=== PATIENT | female | born 1980 | race Caucasian/White ===

== ENCOUNTER 2016-09-20 00:07 | Emergency (ER) | payer OTHER ==
--- NOTE | 2016-09-20 01:43 | ED CLINICAL REPORT ---
Clinical Report - Physicians/Mid Levels Located Within [facility] [address] [place] [address] 09/20/2016 0:09 Patient: SARY ARANA Time Seen: 0015. Arrived- By private vehicle. Historian- patient. HISTORY OF PRESENT ILLNESS Chief Complaint: DENTAL PAIN. This started past several days and is still present. It was abrupt in onset and has been constant but is not gone now. Pain described as moderate. The patient has had moderate toothache involving multiple teeth (left lower molar). Similar symptoms previously: Many times. Recent medical care: The patient was seen recently in a clinic. ( on amox. states the pain has not improved). REVIEW OF SYSTEMS No fever, nausea, skin rash or vomiting. All systems otherwise negative, except as recorded above. PAST HISTORY See nurses notes. SOCIAL HISTORY Never smoker. No alcohol use or drug use. No recent travel. Is a local resident. ADDITIONAL NOTES The nursing notes have been reviewed. PHYSICAL EXAM Vital Signs: 09/20/2016 00:15 BP: 127/72. HR: 80. RR: 20. O2 saturation: 97%. Temp: 98.2 F. Pain level now: 10/10. Blood pressure normal. Oxygen saturation normal. Appearance: Alert. No acute distress. Head: Normal external inspection. Eyes: Pupils equal, round and reactive to light. Conjunctivae and eyelids normal. ENT: Moderate, extensive dental decay (lower left first premolar and second premolar, lower left first molar). Ears normal. Nose normal. Pharynx normal. Lips normal. Gums normal. No trismus present. Uvula midline. Neck: Trachea midline. No adenopathy. Thyroid normal. Neck supple. CVS: Normal heart rate and rhythm. Heart sounds normal. Pulses normal. Respiratory: No respiratory distress. Breath sounds normal. Chest nontender. Abdomen: Soft and nontender. No organomegaly. Skin: Normal skin color. No rash. Normal skin turgor. PROGRESS AND PROCEDURES Dental Nerve Block: Inferior Alveolar Block. Procedure performed on the left side. Landmarks were identified. Topical anesthetic applied. Total volume of 4 mL 1% Lidocaine and 0.25% Marcaine infiltrated using a 27-gauge needle. Patient cooperative during procedure. No complications encountered. Excellent anesthesia achieved. ( 1:1 mixture. informed verbal consent obtained.). Course of Care: The patient is a pleasant 35 yo F presenting for evaluation of dental pain. Patient has been evaluated for retropharyngeal abscess, Ludwigs angina, acute necrotizing ulcerative gingivitis, and peritonsillar abscess. The exam findings are not consistent with any of these etiologies. Evidence for dental pain noted on examination. No concern for airway compromise at this time. Patient appears nontoxic. Vital signs are otherwise unremarkable. Do not feel patient is septic at this time. Patient be managed conservatively at this time with antibiotics and nonsteroidal anti-inflammatory medications as tolerated. Patient be instructed to avoid nonsteroidal anti-inflammatory medications if theyre allergic or have intolerances. Did not feel patient needs to be admitted to the hospital or require further emergency department workup/evaluation. Encouraged patient to follow up with the dentist as soon as possible ideally within the next 2 or 3 days. Reviewed risks and benefits of dental block. Patient agreeable. Patient has been reevaluated. No evidence of airway compromise. Patient continues to be nontoxic and in no acute distress. Pain significantly improved. I discussed the patient workup, diagnosis, home care, follow-up, and return precautions. All questions answered. The patient expressed understanding of these instructions and was agreeable to them. Disposition: Discharged. Condition: good. CLINICAL IMPRESSION 09/20/2016 00:15 BP: 127/72. HR: 80. RR: 20. O2 saturation: 97%. Temp: 98.2 F. Pain level now: 10/10. Blood pressure normal. Oxygen saturation normal. Dental caries (extensive decay) (acute left mandibular molars). left sided facial pain. INSTRUCTIONS (check with your local pharmacist for oral lidocaine type of solution. Follow pharmacy's and the package directions.). Warnings: GENERAL WARNINGS: Return or contact your physician immediately if your condition worsens or changes unexpectedly, if not improving as expected, or if other problems arise. Specifically return if pain, vomiting, bleeding, breathing difficulty or fever. Prescription Medications: Clindamycin 150 mg: take 3 capsules orally every 8 hours for 7 days. No refill. (disp suff quant) Follow-up: Return to the emergency department as needed. Follow up with a specialist your dentist as scheduled. Reason for referral: recheck today's concerns. Summary of care provided to patient via paper. Follow up with your doctor in three days. Reason for referral: recheck today's concerns. Summary of care provided to patient via paper. Screening today revealed the patient's blood pressure to be in the normal range. The patient should follow up with a primary care provider for blood pressure management. Understanding of the discharge instructions verbalized by patient. (Electronically signed by Alex Ramirez Dr. 09/22/2016 4:50)
--- NOTE | 2016-09-20 01:43 | ED ORDER SUMMARY ---
..... Patient: SARY ARANA OrderSheet [facility] VisitID: [id number] [address] [place] [address] 35y, F Registration Date/Time: 09/20/2016 ORDER SHEET Weight: 68.0 kg (stated) Allergies: Sulfa Antibiotics GENERAL ORDERS: MEDICATION ORDERS: Clindamycin PO 450 mg (NOW) (00:28 09/20/2016 Marcia Lomax) (0:54 DDavis R.N.) Lidocaine-Epinephrine Injection 1% (place at bedside) (00:09/20/2016 Marcia Lomax) (0:55 DDavis R.N.) Bupivacaine-Epinephrine Injection 0.25% (placed at bedside) (00:09/20/2016 Marcia Lomax) (0:55 DDavis R.N.) IV FLUIDS: ORDER SHEET NOTES: [Electronically signed by Walt Butterfield R.N. (01:49 09/20/2016)] [Electronically signed by Alex Ramirez Dr. (04:50 09/22/2016)] [Electronically locked/signed by Walt Butterfield R.N. (01:49 09/20/2016)]
--- NOTE | 2016-09-20 01:43 | ED NURSING NOTES ---
Clinical Report - Nurses [facility] [address] [place] [address] 09/20/2016 0:09 Patient: SARY ARANA TRIAGE Triage time 00:15. Acuity: LEVEL 4. Chief Complaint: LEFT UPPER and LOWER TOOTHACHE. Alert. JOSE ALFREDO COMA SCORE: [place] Coma Scale: 15- eyes open spontaneously (4); best verbal response- oriented x 4 (5); best motor response- obeys commands (6). --00:19 Walt Butterfield R.N. 00:15 09/20/16. BP: 127/72. HR: 80. RR: 20. O2 saturation: 97% on room air. Temp: 98.2 F (oral). Pain level now: 02/17. --00:19 Walt Butterfield R.N. Weight: 68 kg stated. Height/Length: 68 inches Per Patient. BMI: 22.8. --00:15 Walt Butterfield R.N. Medications Amoxicillin Oral. --00:49 Walt Butterfield R.N. Allergies Sulfa Antibiotics. --00:49 Walt Butterfield R.N. History Arrived by private vehicle, and accompanied by friend. Onset. (August 08). ( increasing since then. dental appointment scheduled for 09/24/16.). SOCIAL HX: Heavy tobacco smoker (cigarette)- less than 1 pack per day. Occasional alcohol use. History of occasional drug use: marijuana. ( Denies HI/SI, she states "I feel safe at home."). ABUSE ASSESSMENT: No report of abuse. SELF HARM ASSESSMENT: A self harm assessment was performed. The patient answered "no" to the question "Do you have thoughts of harming or killing yourself?" and "Are you here because you tried to hurt yourself?". FALL RISK ASSESSMENT: Fall risk assessment completed. No fall risk identified. NUTRITIONAL RISK ASSESSMENT: The nutritional risk assessment revealed no deficiencies. FUNCTIONAL ASSESSMENT: Functional assessment: no impairments noted. LEARNING NEEDS ASSESSMENT: The learning needs assessment revealed no barriers. SKIN INTEGRITY ASSESSMENT: Skin integrity risk assessment completed. No skin integrity risk identified. --00:19 Walt Butterfield R.N. PROBLEMS: no known problems. ADDITIONAL SURGERIES: no known surgeries. Interventions ID band on patient. To room. --00:19 Walt Butterfield R.N. PHYSICAL ASSESSMENT GENERAL / NEURO / PSYCH: Alert. Oriented X 4. HEENT: Voice within normal limits. Dental tenderness (right lower, left lower). Dental decay. Mucous membranes are pink. RESPIRATORY: Respirations not labored. CVS: Capillary refill less than 2 seconds. SKIN: Skin is warm and dry. --00:20 Walt Butterfield R.N. Ambulatory to room. --00:20 Walt Butterfield R.N. NURSING PROGRESS NOTES Two patient identifiers checked. Call light placed in reach. Side rails up x 1. Bed placed in lowest position. Brakes of bed on. Patient ready for evaluation- chart flagged. Care transferred and report given. Patient waiting for evaluation. --00:20 Walt Butterfield R.N. 00:54 09/20/2016 Clindamycin PO Capsules 450 mg given. Allergies verified and confirmed 5 rights. --00:54 Walt Butterfield R.N. 00:55 09/20/2016 Lidocaine-Epinephrine (Lidocaine-Epinephrine) Injection Injectable. (at bedside for physician). --00:55 Walt Butterfield R.N. 00:55 09/20/2016 Bupivacaine-Epinephrine (Bupivacaine-Epinephrine) Injection Injectable. (at bedside for physician). --00:55 Walt Butterfield R.N. ( Patient requesting pain medication, dr. Johnson notified). --01:27 Walt Butterfield R.N. DISPOSITION / DISCHARGE Departure time: 01:47. Condition at departure: stable. No learning barriers present. Discharge instructions provided and reviewed with the patient. Reviewed medication(s) side effects, precautions, dosing and course information. Prescription(s) given to the patient. Treatments reviewed. Reviewed referrals for followup. Patient verbalized understanding. Written instructions provided in [place]. The patient was discharged home and accompanied by firer electric locomotive. She left the Emergency Department ambulatory and via private vehicle. Assembly Manager driving. --01:48 Walt Butterfield R.N. 01:47 09/20/16. BP: 118/72. HR: 89. RR: 24. O2 saturation: 98% on room air. Pain level now: 02/17. --01:48 Walt Butterfield R.N. Locked/Released at 09/20/2016 1:49 by Walt Butterfield R.N.
--- NOTE | 2016-09-20 01:43 | ED ORDER SUMMARY ---
..... Patient: SARY ARANA OrderSheet [facility] VisitID: [id number] [address] [place] [address] 35y, F Registration Date/Time: 09/20/2016 ORDER SHEET Weight: 68.0 kg (stated) Allergies: Sulfa Antibiotics GENERAL ORDERS: MEDICATION ORDERS: Clindamycin PO 450 mg (NOW) (00:28 09/20/2016 Marcia Lomax) (0:54 DDavis R.N.) Lidocaine-Epinephrine Injection 1% (place at bedside) (00:09/20/2016 Marcia Lomax) (0:55 DDavis R.N.) Bupivacaine-Epinephrine Injection 0.25% (placed at bedside) (00:09/20/2016 Marcia Lomax) (0:55 DDavis R.N.) IV FLUIDS: ORDER SHEET NOTES: [Electronically signed by Walt Butterfield R.N. (01:49 09/20/2016)] [Electronically signed by Alex Ramirez Dr. (04:50 09/22/2016)] [Electronically locked/signed by Walt Butterfield R.N. (01:49 09/20/2016)]
--- NOTE | 2016-09-20 01:43 | ED NURSING NOTES ---
Clinical Report - Nurses [facility] [address] [place] [address] 09/20/2016 0:09 Patient: SARY ARANA TRIAGE Triage time 00:15. Acuity: LEVEL 4. Chief Complaint: LEFT UPPER and LOWER TOOTHACHE. Alert. JOSE ALFREDO COMA SCORE: [place] Coma Scale: 15- eyes open spontaneously (4); best verbal response- oriented x 4 (5); best motor response- obeys commands (6). --00:19 Walt Butterfield R.N. 00:15 09/20/16. BP: 127/72. HR: 80. RR: 20. O2 saturation: 97% on room air. Temp: 98.2 F (oral). Pain level now: 02/17. --00:19 Walt Butterfield R.N. Weight: 68 kg stated. Height/Length: 68 inches Per Patient. BMI: 22.8. --00:15 Walt Butterfield R.N. Medications Amoxicillin Oral. --00:49 Walt Butterfield R.N. Allergies Sulfa Antibiotics. --00:49 Walt Butterfield R.N. History Arrived by private vehicle, and accompanied by friend. Onset. (August 08). ( increasing since then. dental appointment scheduled for 09/24/16.). SOCIAL HX: Heavy tobacco smoker (cigarette)- less than 1 pack per day. Occasional alcohol use. History of occasional drug use: marijuana. ( Denies HI/SI, she states "I feel safe at home."). ABUSE ASSESSMENT: No report of abuse. SELF HARM ASSESSMENT: A self harm assessment was performed. The patient answered "no" to the question "Do you have thoughts of harming or killing yourself?" and "Are you here because you tried to hurt yourself?". FALL RISK ASSESSMENT: Fall risk assessment completed. No fall risk identified. NUTRITIONAL RISK ASSESSMENT: The nutritional risk assessment revealed no deficiencies. FUNCTIONAL ASSESSMENT: Functional assessment: no impairments noted. LEARNING NEEDS ASSESSMENT: The learning needs assessment revealed no barriers. SKIN INTEGRITY ASSESSMENT: Skin integrity risk assessment completed. No skin integrity risk identified. --00:19 Walt Butterfield R.N. PROBLEMS: no known problems. ADDITIONAL SURGERIES: no known surgeries. Interventions ID band on patient. To room. --00:19 Walt Butterfield R.N. PHYSICAL ASSESSMENT GENERAL / NEURO / PSYCH: Alert. Oriented X 4. HEENT: Voice within normal limits. Dental tenderness (right lower, left lower). Dental decay. Mucous membranes are pink. RESPIRATORY: Respirations not labored. CVS: Capillary refill less than 2 seconds. SKIN: Skin is warm and dry. --00:20 Walt Butterfield R.N. Ambulatory to room. --00:20 Walt Butterfield R.N. NURSING PROGRESS NOTES Two patient identifiers checked. Call light placed in reach. Side rails up x 1. Bed placed in lowest position. Brakes of bed on. Patient ready for evaluation- chart flagged. Care transferred and report given. Patient waiting for evaluation. --00:20 Walt Butterfield R.N. 00:54 09/20/2016 Clindamycin PO Capsules 450 mg given. Allergies verified and confirmed 5 rights. --00:54 Walt Butterfield R.N. 00:55 09/20/2016 Lidocaine-Epinephrine (Lidocaine-Epinephrine) Injection Injectable. (at bedside for physician). --00:55 Walt Butterfield R.N. 00:55 09/20/2016 Bupivacaine-Epinephrine (Bupivacaine-Epinephrine) Injection Injectable. (at bedside for physician). --00:55 Walt Butterfield R.N. ( Patient requesting pain medication, dr. Johnson notified). --01:27 Walt Butterfield R.N. DISPOSITION / DISCHARGE Departure time: 01:47. Condition at departure: stable. No learning barriers present. Discharge instructions provided and reviewed with the patient. Reviewed medication(s) side effects, precautions, dosing and course information. Prescription(s) given to the patient. Treatments reviewed. Reviewed referrals for followup. Patient verbalized understanding. Written instructions provided in [place]. The patient was discharged home and accompanied by medical lead. She left the Emergency Department ambulatory and via private vehicle. Digitizer Operator driving. --01:48 Walt Butterfield R.N. 01:47 09/20/16. BP: 118/72. HR: 89. RR: 24. O2 saturation: 98% on room air. Pain level now: 02/17. --01:48 Walt Butterfield R.N. Locked/Released at 09/20/2016 1:49 by Walt Butterfield R.N.
--- NOTE | 2016-09-22 04:50 | ED DISCHARGE INSTRUCTIONS ---
Patient: SARY ARANA General Instructions [facility] VisitID: [id number] [address] [place] [address] 35y, F Registration Date/Time: 09/20/2016 09/20/2016 00:15 BP: 127/72. HR: 80. RR: 20. O2 saturation: 97%. Temp: 98.2 F. Pain level now: 10/10. Blood pressure normal. Oxygen saturation normal. Dental caries (extensive decay) (acute left mandibular molars). left sided facial pain. INSTRUCTIONS (check with your local pharmacist for oral lidocaine type of solution. Follow pharmacy's and the package directions.). Warnings: GENERAL WARNINGS: Return or contact your physician immediately if your condition worsens or changes unexpectedly, if not improving as expected, or if other problems arise. Specifically return if pain, vomiting, bleeding, breathing difficulty or fever. Prescription Medications: Clindamycin 150 mg: take 3 capsules orally every 8 hours for 7 days. No refill. (disp suff quant) Follow-up: Return to the emergency department as needed. Follow up with a specialist your dentist as scheduled. Reason for referral: recheck today's concerns. Summary of care provided to patient via paper. Follow up with your doctor in three days. Reason for referral: recheck today's concerns. Summary of care provided to patient via paper. Screening today revealed the patient's blood pressure to be in the normal range. The patient should follow up with a primary care provider for blood pressure management. Understanding of the discharge instructions verbalized by patient. ADDITIONAL INFORMATION Dental Cavity A dental cavity is a pit or crater in the enamel surface of the tooth. This exposes the sensitive inner layer of the tooth and causes pain. If untreated, the cavity will get bigger and may cause an infection or abscess in the root of the tooth. An infection in the tooth is a much more serious problem and may require a root canal or removal of the entire tooth. The tooth pain may be made worse by drinking hot or cold fluids. It may spread from the tooth to the ear or jaw on the same side. Home Care: Avoid hot and cold foods, and liquids since your tooth may be sensitive to temperature changes. If your tooth is chipped or cracked, or if there is a large open cavity, apply OIL OF CLOVES (available hyle-obp-avfzznm in drug stores) directly to the tooth to reduce pain. Some pharmacies carry an efji-dms-vsravpx "toothache kit." This contains oil of cloves and a paste, which can be applied over the exposed tooth to decrease sensitivity. An ice pack on your jaw over the sore area may help to reduce pain. You may use acetaminophen (Tylenol) or ibuprofen (Motrin, Advil) to control pain, unless another pain medicine was prescribed. [ NOTE: If you have liver disease or ever had a stomach ulcer, talk with your doctor before using these medicines.] If you have signs of an infection, an antibiotic will be given. Take it as directed. Follow-Up with your dentist as directed. Although your pain may go away with the treatment given, only a dentist can fully evaluate and treat this problem to prevent further tooth damage. Get Prompt Medical Attention if any of the following occur: Redness or swelling of the face Pain worsens or spreads to the neck Fever over 100.5 F (38C) Unusual drowsiness; headache or stiff neck; weakness or fainting Pus drains from the tooth or gum Difficulty swallowing or breathing Dental Pain A crack or cavity in the tooth, which exposes the sensitive inner area of the tooth can cause tooth pain. An infection in the gum or the root of the tooth can cause pain and swelling. The pain is often made worse by drinking hot or cold fluids, or biting on hard foods. Pain may spread from the tooth to the ear or jaw on the same side. Home Care: Avoid hot and cold foods and liquids since your tooth may be sensitive to temperature changes. If your tooth is chipped or cracked, or if there is a large open cavity, apply OIL OF CLOVES (available naes-wua-efdhvyo in drug stores) directly to the tooth to reduce pain. Some pharmacies carry an xtvu-oeh-bxigybx "toothache kit." This contains a paste, which can be applied over the exposed tooth to decrease sensitivity. A cold pack on your jaw over the sore area may help reduce pain. You may use acetaminophen (Tylenol) or ibuprofen (Motrin, Advil) to control pain, unless another medicine was prescribed. [ NOTE: If you have chronic liver or kidney disease or ever had a stomach ulcer or GI bleeding, talk with your doctor before using these medicines.] If you have signs of an infection, an antibiotic will be given. Take it as directed. Follow-Up as directed with a dentist. Your pain may go away with the treatment given. However, only a dentist can fully evaluate and treat the cause and prevent the pain from coming back again. TOOTHACHE IS A SIGN OF DISEASE IN YOUR TOOTH AND SHOULD BE EXAMINED AND TREATED BY A DENTIST. Get Prompt Medical Attention if any of the following occur: Your face becomes swollen or red Pain worsens or spreads to the neck Fever over 100.4 F (38.0 C) Unusual drowsiness; headache or stiff neck; weakness or fainting Pus drains from the tooth Difficulty swallowing or breathing Clindamycin Hydrochloride Oral capsule What is this medicine? CLINDAMYCIN (GONSALO Talavera) is a lincosamide antibiotic. It is used to treat certain kinds of bacterial infections. It will not work for colds, flu, or other viral infections. How should I use this medicine? Take this medicine by mouth with a full glass of water. Follow the directions on the prescription label. You can take this medicine with food or on an empty stomach. If the medicine upsets your stomach, take it with food. Take your medicine at regular intervals. Do not take your medicine more often than directed. Take all of your medicine as directed even if you think your are better. Do not skip doses or stop your medicine early. Talk to your resolution specialist regarding the use of this medicine in children. Special care may be needed. What side effects may I notice from receiving this medicine? Side effects that you should report to your doctor or health behavioral health care coordinator as soon as possible: allergic reactions like skin rash, itching or hives, swelling of the face, lips, or tongue dark urine pain on swallowing redness, blistering, peeling or loosening of the skin, including inside the mouth unusual bleeding or bruising unusually weak or tired yellowing of eyes or skin Side effects that usually do not require medical attention (report to your doctor or health behavioral health care coordinator if they continue or are bothersome): diarrhea itching in the rectal or genital area joint pain nausea, vomiting stomach pain What may interact with this medicine? chloramphenicol erythromycin kaolin products What if I miss a dose? If you miss a dose, take it as soon as you can. If it is almost time for your next dose, take only that dose. Do not take double or extra doses. Where should I keep my medicine? Keep out of the reach of children. Store at room temperature between 20 and 25 degrees C (68 and 77 degrees F). Throw away any unused medicine after the expiration date. What should I tell my health care provider before I take this medicine? They need to know if you have any of these conditions: kidney disease liver disease stomach problems like colitis an unusual or allergic reaction to clindamycin, lincomycin, or other medicines, foods, dyes like tartrazine or preservatives or trying to get breast-feeding What should I watch for while using this medicine? Tell your doctor or healthcare professional if your symptoms do not start to get better or if they get worse. Do not treat diarrhea with over the counter products. Contact your doctor if you have diarrhea that lasts more than 2 days or if it is severe and watery. You have been given the following additional information: Dental Cavity Dental Pain Clindamycin Hydrochloride Oral capsule (Electronically signed by Alex Ramirez Dr. 09/22/2016 4:50)
--- NOTE | 2016-09-22 04:50 | ED MAR SUMMARY ---
..... Medication Administration Record [facility] [address] [place] [address] Patient: SARY ARANA Visit ID: [id number] 35y, F Weight: 68.0 kg Height/Length: 68 in BMI: 22.8 ALLERGIES: Sulfa Antibiotics Given 00:54 09/20/2016 Walt Butterfield R.N. Medication Administered: CLINDAMYCIN [PO], Dose: 450 mg Capsules PO. Medication Ordered: Clindamycin PO 450 mg (NOW). Given 00:55 09/20/2016 Walt Butterfield R.N. Medication Administered: LIDOCAINE-EPINEPHRINE [INJECTION] (LIDOCAINE-EPINEPHRINE), Dose: Injectable Injection. Medication Ordered: Lidocaine-Epinephrine Injection 1% (place at bedside). Given 00:09/20/2016 Walt Butterfield R.N. Medication Administered: BUPIVACAINE-EPINEPHRINE [INJECTION] (BUPIVACAINE-EPINEPHRINE), Dose: Injectable Injection. Medication Ordered: Bupivacaine-Epinephrine Injection 0.25% (placed at bedside).
--- NOTE | 2016-09-22 04:50 | ED DISCHARGE INSTRUCTIONS ---
Patient: SARY ARANA General Instructions [facility] VisitID: [id number] [address] [place] [address] 35y, F Registration Date/Time: 09/20/2016 09/20/2016 00:15 BP: 127/72. HR: 80. RR: 20. O2 saturation: 97%. Temp: 98.2 F. Pain level now: 10/10. Blood pressure normal. Oxygen saturation normal. Dental caries (extensive decay) (acute left mandibular molars). left sided facial pain. INSTRUCTIONS (check with your local pharmacist for oral lidocaine type of solution. Follow pharmacy's and the package directions.). Warnings: GENERAL WARNINGS: Return or contact your physician immediately if your condition worsens or changes unexpectedly, if not improving as expected, or if other problems arise. Specifically return if pain, vomiting, bleeding, breathing difficulty or fever. Prescription Medications: Clindamycin 150 mg: take 3 capsules orally every 8 hours for 7 days. No refill. (disp suff quant) Follow-up: Return to the emergency department as needed. Follow up with a specialist your dentist as scheduled. Reason for referral: recheck today's concerns. Summary of care provided to patient via paper. Follow up with your doctor in three days. Reason for referral: recheck today's concerns. Summary of care provided to patient via paper. Screening today revealed the patient's blood pressure to be in the normal range. The patient should follow up with a primary care provider for blood pressure management. Understanding of the discharge instructions verbalized by patient. ADDITIONAL INFORMATION Dental Cavity A dental cavity is a pit or crater in the enamel surface of the tooth. This exposes the sensitive inner layer of the tooth and causes pain. If untreated, the cavity will get bigger and may cause an infection or abscess in the root of the tooth. An infection in the tooth is a much more serious problem and may require a root canal or removal of the entire tooth. The tooth pain may be made worse by drinking hot or cold fluids. It may spread from the tooth to the ear or jaw on the same side. Home Care: Avoid hot and cold foods, and liquids since your tooth may be sensitive to temperature changes. If your tooth is chipped or cracked, or if there is a large open cavity, apply OIL OF CLOVES (available nphr-ups-iqzhimc in drug stores) directly to the tooth to reduce pain. Some pharmacies carry an hser-nbd-ycuugwx "toothache kit." This contains oil of cloves and a paste, which can be applied over the exposed tooth to decrease sensitivity. An ice pack on your jaw over the sore area may help to reduce pain. You may use acetaminophen (Tylenol) or ibuprofen (Motrin, Advil) to control pain, unless another pain medicine was prescribed. [ NOTE: If you have liver disease or ever had a stomach ulcer, talk with your doctor before using these medicines.] If you have signs of an infection, an antibiotic will be given. Take it as directed. Follow-Up with your dentist as directed. Although your pain may go away with the treatment given, only a dentist can fully evaluate and treat this problem to prevent further tooth damage. Get Prompt Medical Attention if any of the following occur: Redness or swelling of the face Pain worsens or spreads to the neck Fever over 100.5 F (38C) Unusual drowsiness; headache or stiff neck; weakness or fainting Pus drains from the tooth or gum Difficulty swallowing or breathing Dental Pain A crack or cavity in the tooth, which exposes the sensitive inner area of the tooth can cause tooth pain. An infection in the gum or the root of the tooth can cause pain and swelling. The pain is often made worse by drinking hot or cold fluids, or biting on hard foods. Pain may spread from the tooth to the ear or jaw on the same side. Home Care: Avoid hot and cold foods and liquids since your tooth may be sensitive to temperature changes. If your tooth is chipped or cracked, or if there is a large open cavity, apply OIL OF CLOVES (available xdxe-lez-rnapqte in drug stores) directly to the tooth to reduce pain. Some pharmacies carry an anab-jyg-nqjqakn "toothache kit." This contains a paste, which can be applied over the exposed tooth to decrease sensitivity. A cold pack on your jaw over the sore area may help reduce pain. You may use acetaminophen (Tylenol) or ibuprofen (Motrin, Advil) to control pain, unless another medicine was prescribed. [ NOTE: If you have chronic liver or kidney disease or ever had a stomach ulcer or GI bleeding, talk with your doctor before using these medicines.] If you have signs of an infection, an antibiotic will be given. Take it as directed. Follow-Up as directed with a dentist. Your pain may go away with the treatment given. However, only a dentist can fully evaluate and treat the cause and prevent the pain from coming back again. TOOTHACHE IS A SIGN OF DISEASE IN YOUR TOOTH AND SHOULD BE EXAMINED AND TREATED BY A DENTIST. Get Prompt Medical Attention if any of the following occur: Your face becomes swollen or red Pain worsens or spreads to the neck Fever over 100.4 F (38.0 C) Unusual drowsiness; headache or stiff neck; weakness or fainting Pus drains from the tooth Difficulty swallowing or breathing Clindamycin Hydrochloride Oral capsule What is this medicine? CLINDAMYCIN (GONSALO Talavera) is a lincosamide antibiotic. It is used to treat certain kinds of bacterial infections. It will not work for colds, flu, or other viral infections. How should I use this medicine? Take this medicine by mouth with a full glass of water. Follow the directions on the prescription label. You can take this medicine with food or on an empty stomach. If the medicine upsets your stomach, take it with food. Take your medicine at regular intervals. Do not take your medicine more often than directed. Take all of your medicine as directed even if you think your are better. Do not skip doses or stop your medicine early. Talk to your consulting marine engineer regarding the use of this medicine in children. Special care may be needed. What side effects may I notice from receiving this medicine? Side effects that you should report to your doctor or health landcare facilitator as soon as possible: allergic reactions like skin rash, itching or hives, swelling of the face, lips, or tongue dark urine pain on swallowing redness, blistering, peeling or loosening of the skin, including inside the mouth unusual bleeding or bruising unusually weak or tired yellowing of eyes or skin Side effects that usually do not require medical attention (report to your doctor or health landcare facilitator if they continue or are bothersome): diarrhea itching in the rectal or genital area joint pain nausea, vomiting stomach pain What may interact with this medicine? chloramphenicol erythromycin kaolin products What if I miss a dose? If you miss a dose, take it as soon as you can. If it is almost time for your next dose, take only that dose. Do not take double or extra doses. Where should I keep my medicine? Keep out of the reach of children. Store at room temperature between 20 and 25 degrees C (68 and 77 degrees F). Throw away any unused medicine after the expiration date. What should I tell my health care provider before I take this medicine? They need to know if you have any of these conditions: kidney disease liver disease stomach problems like colitis an unusual or allergic reaction to clindamycin, lincomycin, or other medicines, foods, dyes like tartrazine or preservatives or trying to get breast-feeding What should I watch for while using this medicine? Tell your doctor or healthcare professional if your symptoms do not start to get better or if they get worse. Do not treat diarrhea with over the counter products. Contact your doctor if you have diarrhea that lasts more than 2 days or if it is severe and watery. You have been given the following additional information: Dental Cavity Dental Pain Clindamycin Hydrochloride Oral capsule (Electronically signed by Alex Ramirez Dr. 09/22/2016 4:50)
--- NOTE | 2016-09-22 04:50 | ED MAR SUMMARY ---
..... Medication Administration Record [facility] [address] [place] [address] Patient: SARY ARANA Visit ID: [id number] 35y, F Weight: 68.0 kg Height/Length: 68 in BMI: 22.8 ALLERGIES: Sulfa Antibiotics Given 00:54 09/20/2016 Walt Butterfield R.N. Medication Administered: CLINDAMYCIN [PO], Dose: 450 mg Capsules PO. Medication Ordered: Clindamycin PO 450 mg (NOW). Given 00:55 09/20/2016 Walt Butterfield R.N. Medication Administered: LIDOCAINE-EPINEPHRINE [INJECTION] (LIDOCAINE-EPINEPHRINE), Dose: Injectable Injection. Medication Ordered: Lidocaine-Epinephrine Injection 1% (place at bedside). Given 00:09/20/2016 Walt Butterfield R.N. Medication Administered: BUPIVACAINE-EPINEPHRINE [INJECTION] (BUPIVACAINE-EPINEPHRINE), Dose: Injectable Injection. Medication Ordered: Bupivacaine-Epinephrine Injection 0.25% (placed at bedside).
--- NOTE | 2016-09-22 04:50 | ED MED RECONCILIATION SUMMARY ---
Patient: SARY ARANA Medication Reconciliation Report [facility] VisitID: [id number] [address] [place] [address] 35y, F Registration Date/Time: 09/20/2016 Weight: 68.0 kg Height/Length: 68 in. BMI: 22.8 ALLERGIES: Sulfa Antibiotics The patient's Home Medications are listed below: THE FOLLOWING MEDICATIONS NEED TO BE RECONCILED: Amoxicillin Oral The source(s) of the original Home Medication information: Not obtained. The following Medications were given to the patient in the Emergency Department: Clindamycin [PO] PO 450 mg, administered: 09/20/2016 12:54:00 AM Lidocaine-Epinephrine [Injection] Injection, administered: 09/20/2016 12:55:00 AM Bupivacaine-Epinephrine [Injection] Injection, administered: 09/20/2016 12:55:00 AM The following Medications were prescribed to the patient: Clindamycin 150 mg: take 3 capsules orally every 8 hours for 7 days. No refill.(disp suff quant) -- Alex Ramirez Dr.
--- NOTE | 2016-09-22 04:50 | ED MED RECONCILIATION SUMMARY ---
Patient: SARY ARANA Medication Reconciliation Report VisitID: [id number] [address] [place] [address] 35y, F Registration Date/Time: 09/20/2016 Weight: 68.0 kg Height/Length: 68 in. BMI: 22.8 ALLERGIES: Sulfa Antibiotics The patient's Home Medications are listed below: THE FOLLOWING MEDICATIONS NEED TO BE RECONCILED: Amoxicillin Oral The source(s) of the original Home Medication information: Not obtained. The following Medications were given to the patient in the Emergency Department: Clindamycin [PO] PO 450 mg, administered: 09/20/2016 12:54:00 AM Lidocaine-Epinephrine [Injection] Injection, administered: 09/20/2016 12:55:00 AM Bupivacaine-Epinephrine [Injection] Injection, administered: 09/20/2016 12:55:00 AM The following Medications were prescribed to the patient: Clindamycin 150 mg: take 3 capsules orally every 8 hours for 7 days. No refill.(disp suff quant) -- Alex Ramriez Dr.
== END 2016-09-20 01:49 | disposition home or self-care (01) ==
LOC: ED SRH 00:07
DX: K02.9 Dental caries, unspecified (principal); R51 Headache

== ENCOUNTER 2016-09-29 06:37 | Emergency (ER) | payer OTHER ==
--- NOTE | 2016-09-29 07:18 | ED NURSING NOTES ---
Clinical Report - Nurses [facility] [address] [place] [address] 09/29/2016 6:38 Patient: SARY ARANA TRIAGE Triage time 06:41. Acuity: LEVEL 3. Chief Complaint: (shortness of breath, "muscle swelling"). 06:50 09/29/16. Alert. No acute distress. SEPSIS SCREEN: Sepsis Screen. Negative (no infection suspected/documented). MELINDA COMA SCORE: Melinda Coma Scale: 15- eyes open spontaneously (4); best verbal response- oriented x 4 (5); best motor response- obeys commands (6). --06:50 Lilly Merrill R.N. 06:42 09/29/16. BP: 135/92. HR: 82. RR: 24. O2 saturation: 98%. Temp: 98.4 F. Pain level now: 02/17. --06:50 Lilly Merrill R.N. Weight: 63.5 kg stated. Height/Length: 68 inches Per Patient. BMI: 21.3. --06:49 Lilly Merrill R.N. Allergies Sulfa Antibiotics. --06:47 Lilly Merrill R.N. Ibuprofen. --06:47 Lilly Merrill R.N. Zithromax. --06:48 Lilly Merrill R.N. History Arrived by private vehicle. Historian: patient. Primary physician (no PCP). Onset. (today). ( Patient reports she felt similar symptoms when she started taking the Clindamycin prescribed in this ED last time she was here (about a week ago). She stopped taking the clindamycin, felt better, and then started taking the antibiotic again. She decided to come in today due to SOB.). She has had mild difficulty breathing. PAST MEDICAL HX: Immunizations: up-to-date. Denies current . SOCIAL HX: Light tobacco smoker- less than 1/2 a pack per day. Occasional alcohol use. History of drug use: marijuana. FALL RISK ASSESSMENT: Fall risk assessment completed. No fall risk identified. NUTRITIONAL RISK ASSESSMENT: The nutritional risk assessment revealed no deficiencies. FUNCTIONAL ASSESSMENT: Functional assessment: no impairments noted. LEARNING NEEDS ASSESSMENT: The learning needs assessment revealed no barriers. SKIN INTEGRITY ASSESSMENT: Skin integrity risk assessment completed. No skin integrity risk identified. --06:50 Lilly Merrill R.N. PROBLEMS: Dental Caries. --06:48 Lilly Merrill R.N. ADDITIONAL SURGERIES: no known surgeries. Interventions ID band on patient. To treatment room. --06:50 Lilly Merrill R.N. PHYSICAL ASSESSMENT 06:51 09/29/16. To room via wheelchair. GENERAL / NEURO / PSYCH: Alert. Oriented X 4. Appears anxious. HEENT: No facial asymmetry noted. Mucous membranes are pink. RESPIRATORY: Respirations not labored. Breath sounds within normal limits. CVS: Capillary refill less than 2 seconds. Pulses within normal limits. GI / : Abdomen nontender and normal bowel sounds. SKIN: Skin intact. Skin is warm and dry. Normal skin turgor. --06:51 Lilly Merrill R.N. NURSING PROGRESS NOTES 06:52 09/29/16. Pulse oximeter and NIBP monitor placed on patient. Patient gowned. Two patient identifiers checked. Call light placed in reach. Side rails up x 2. Bed placed in lowest position. Brakes of bed on. Patient ready for evaluation- chart flagged and notification provided. --06:52 Lilly Merrill R.N. DISPOSITION / DISCHARGE 07:19 09/29/16. The patient left the Emergency Department without completion of treatment; patient was accompanied by spouse. Gown found on bed. Unable to locate patient. The patient did not notify the ED staff prior to leaving the department. The patient eloped. --07:19 Lilly Merrill R.N. 06:42 09/29/16. BP: 135/92. HR: 82. RR: 24. O2 saturation: 98%. Temp: 98.4 F. Pain level now: 02/17. --07:19 Lilly Merrill R.N. Locked/Released at 09/29/2016 11:56 by Shahnaz Leung R.N.
--- NOTE | 2016-09-29 07:18 | ED ORDER SUMMARY ---
..... Patient: SARY ARANA OrderSheet [facility] VisitID: [id number] [address] [place] [address] 36y, F Registration Date/Time: 09/29/2016 ORDER SHEET Weight: 63.5 kg (stated) Allergies: Sulfa Antibiotics, Ibuprofen, Zithromax GENERAL ORDERS: Cardiac Panel Stat (07:09/29/2016 Bailee WATERS) (Ack 7:12 LMuller) UA-Culture if indicated Urgent (07:09/29/2016 Bailee WATERS) (Ack 7:12 LMuller) Urine Drug Screen Urgent (07:09/29/2016 Bailee WATERS) (Ack 7:12 LMuller) Urine Urgent (07:09/29/2016 Bailee WATERS) (Ack 7:12 LMuller) MEDICATION ORDERS: Benadryl PO 50 mg (NOW) (07:09/29/2016 Bailee WATERS) (Ack 7:12 MWinterer R.N.) Prednisone PO 40 mg (NOW) (07:09/29/2016 Bailee WATESR) (Ack 7:12 MWinterer R.N.) Famotidine PO 40 mg (NOW) (07:09/29/2016 Bailee WATERS) (Ack 7:12 MWinterer R.N.) IV FLUIDS: ORDER SHEET NOTES: [Electronically signed by Shahnaz Leung R.N. (11:56 09/29/2016)] [Electronically signed by Curly Figueredo MD (00:03 10/02/2016)] [Electronically locked/signed by Shahnaz Leung R.N. (11:56 09/29/2016)]
--- NOTE | 2016-09-29 07:18 | ED CLINICAL REPORT ---
Clinical Report - Physicians/Mid Levels [facility] [address] [place] [address] 09/29/2016 6:38 Patient: SARY ARANA Time Seen: 06:50 Sep 29 2016. Arrived- By private vehicle. Historian- patient. CPT: ER phys charges level 3 (#[id number]). HISTORY OF PRESENT ILLNESS Chief Complaint: ALLERGIC REACTION. Hands and feet swelling , itching in general. No rash. All since starting cleocin for dental abscess 1 week ago. Pt failed to let staff know that she had this allergy on her last visit. This started today and is still present. The patient has had itching and swelling involving the hands and feet but not had trouble swallowing. No difficulty breathing or dizziness. A cause has been identified. She has recently taken an antibiotic. Similar symptoms previously: Recent medical care: Not recently seen/assessed. REVIEW OF SYSTEMS No eye problems, sore throat, cough, fever or joint pain. No enlarged lymph nodes, weakness, chest pain, palpitations or abdominal pain. No vomiting, black stools or diarrhea. PAST HISTORY Dental Caries. Additional Surgeries: no known surgeries. Allergies: Ibuprofen. Sulfa Antibiotics. Zithromax. SOCIAL HISTORY Heavy tobacco smoker (cigarette)- less than 1 pack per day. Occasional alcohol use. History of occasional drug use: marijuana. ADDITIONAL NOTES The nursing notes have been reviewed. PHYSICAL EXAM Vital Signs: 09/29/2016 06:42 BP: 135/92. HR: 82. RR: 24. O2 saturation: 98%. Temp: 98.4 F. Pain level now: 10/10. Appearance: Alert. No acute distress. Anxious. Head and Neck: Normal external inspection. Head: No facial angioedema. Eyes: Pupils equal, round and reactive to light. ENT: Ears normal. Nose normal. Pharynx normal. Voice normal. Neck: Neck supple. CVS: Normal heart rate and rhythm. Heart sounds normal. Respiratory: No respiratory distress. Breath sounds normal. No wheezes. Abdomen: Nontender. Skin: Skin warm. Extremities: Extremities nontender. (general swelling of hands and feet.). Skin: Normal skin color. No rash. No urticaria. PROGRESS AND PROCEDURES Course of Care: Pt c/o of general pruritis but there is no rash seen. Allergy may still be the etiology. Benadryl 50 mg po Prednisone 40 mg po Famotadine 40 mg po Pt left ER before medication delivered. Patient/family counseled. Disposition: Discharged. Condition: stable and improved. CLINICAL IMPRESSION Allergic reaction. Eloped. (Electronically signed by Curly Figueredo MD 10/02/2016 0:03)
--- NOTE | 2016-09-29 07:18 | ED CLINICAL REPORT ---
Clinical Report - Physicians/Mid Levels [facility] [address] [place] [address] 09/29/2016 6:38 Patient: SARY ARANA Time Seen: 06:50 Sep 29 2016. Arrived- By private vehicle. Historian- patient. CPT: ER phys charges level 3 (#[id number]). HISTORY OF PRESENT ILLNESS Chief Complaint: ALLERGIC REACTION. Hands and feet swelling , itching in general. No rash. All since starting cleocin for dental abscess 1 week ago. Pt failed to let staff know that she had this allergy on her last visit. This started today and is still present. The patient has had itching and swelling involving the hands and feet but not had trouble swallowing. No difficulty breathing or dizziness. A cause has been identified. She has recently taken an antibiotic. Similar symptoms previously: Recent medical care: Not recently seen/assessed. REVIEW OF SYSTEMS No eye problems, sore throat, cough, fever or joint pain. No enlarged lymph nodes, weakness, chest pain, palpitations or abdominal pain. No vomiting, black stools or diarrhea. PAST HISTORY Dental Caries. Additional Surgeries: no known surgeries. Allergies: Ibuprofen. Sulfa Antibiotics. Zithromax. SOCIAL HISTORY Heavy tobacco smoker (cigarette)- less than 1 pack per day. Occasional alcohol use. History of occasional drug use: marijuana. ADDITIONAL NOTES The nursing notes have been reviewed. PHYSICAL EXAM Vital Signs: 09/29/2016 06:42 BP: 135/92. HR: 82. RR: 24. O2 saturation: 98%. Temp: 98.4 F. Pain level now: 10/10. Appearance: Alert. No acute distress. Anxious. Head and Neck: Normal external inspection. Head: No facial angioedema. Eyes: Pupils equal, round and reactive to light. ENT: Ears normal. Nose normal. Pharynx normal. Voice normal. Neck: Neck supple. CVS: Normal heart rate and rhythm. Heart sounds normal. Respiratory: No respiratory distress. Breath sounds normal. No wheezes. Abdomen: Nontender. Skin: Skin warm. Extremities: Extremities nontender. (general swelling of hands and feet.). Skin: Normal skin color. No rash. No urticaria. PROGRESS AND PROCEDURES Course of Care: Pt c/o of general pruritis but there is no rash seen. Allergy may still be the etiology. Benadryl 50 mg po Prednisone 40 mg po Famotadine 40 mg po Pt left ER before medication delivered. Patient/family counseled. Disposition: Discharged. Condition: stable and improved. CLINICAL IMPRESSION Allergic reaction. Eloped. (Electronically signed by Curly Figueredo MD 10/02/2016 0:03)
--- NOTE | 2016-09-29 07:18 | ED ORDER SUMMARY ---
..... Patient: SARY ARANA OrderSheet [facility] VisitID: [id number] [address] [place] [address] 36y, F Registration Date/Time: 09/29/2016 ORDER SHEET Weight: 63.5 kg (stated) Allergies: Sulfa Antibiotics, Ibuprofen, Zithromax GENERAL ORDERS: Cardiac Panel Stat (07:09/29/2016 Bailee WATERS) (Ack 7:12 LMuller) UA-Culture if indicated Urgent (07:09/29/2016 Bailee WATERS) (Ack 7:12 LMuller) Urine Drug Screen Urgent (07:09/29/2016 Bailee WATERS) (Ack 7:12 LMuller) Urine Urgent (07:09/29/2016 Bailee WATERS) (Ack 7:12 LMuller) MEDICATION ORDERS: Benadryl PO 50 mg (NOW) (07:09/29/2016 Bailee WATERS) (Ack 7:12 MWinterer R.N.) Prednisone PO 40 mg (NOW) (07:09/29/2016 Bailee WATERS) (Ack 7:12 MWinterer R.N.) Famotidine PO 40 mg (NOW) (07:09/29/2016 Bailee WATERS) (Ack 7:12 MWinterer R.N.) IV FLUIDS: ORDER SHEET NOTES: [Electronically signed by Shahnaz Leung R.N. (11:56 09/29/2016)] [Electronically signed by Curly Figueredo MD (00:03 10/02/2016)] [Electronically locked/signed by Shahnaz Leung R.N. (11:56 09/29/2016)]
--- NOTE | 2016-10-02 00:03 | ED MED RECONCILIATION SUMMARY ---
Patient: SARY ARANA Medication Reconciliation Report [facility] VisitID: [id number] [address] [place] [place] [address] 36y, F Registration Date/Time: 09/29/2016 Weight: 63.5 kg Height/Length: 68 in. BMI: 21.3 ALLERGIES: Ibuprofen, Sulfa Antibiotics, Zithromax The patient's Home Medications are listed below: Not obtained. The source(s) of the original Home Medication information: Not obtained. The following Medications were given to the patient in the Emergency Department: None. The following Medications were prescribed to the patient: None.
--- NOTE | 2016-10-02 00:03 | ED DISCHARGE INSTRUCTIONS ---
Patient: SARY ARANA General Instructions [facility] VisitID: [id number] [address] [place] [address] 36y, F Registration Date/Time: 09/29/2016 Allergic reaction. Eloped. (Electronically signed by Curly Figueredo MD 10/02/2016 0:03)
--- NOTE | 2016-10-02 00:03 | ED MAR SUMMARY ---
..... Medication Administration Record [facility] [address], [place] [id number] Patient: SARY ARANA Visit ID: [id number] 36y, F Weight: 63.5 kg Height/Length: 68 in BMI: 21.3 ALLERGIES: Zithromax, Ibuprofen, Sulfa Antibiotics
--- NOTE | 2016-10-02 00:03 | ED MAR SUMMARY ---
..... Medication Administration Record [facility] [address] [place], [place] [id number] Patient: SARY ARANA Visit ID: [id number] 36y, F Weight: 63.5 kg Height/Length: 68 in BMI: 21.3 ALLERGIES: Zithromax, Ibuprofen, Sulfa Antibiotics
--- NOTE | 2016-10-02 00:03 | ED DISCHARGE INSTRUCTIONS ---
Patient: SARY ARANA General Instructions [facility] VisitID: [id number] [address] [place] [address] 36y, F Registration Date/Time: 09/29/2016 Allergic reaction. Eloped. (Electronically signed by Curly Figueredo MD 10/02/2016 0:03)
--- NOTE | 2016-10-02 00:03 | ED MED RECONCILIATION SUMMARY ---
Patient: SARY ARANA Medication Reconciliation Report [facility] VisitID: [id number] [address] [place] [address] 36y, F Registration Date/Time: 09/29/2016 Weight: 63.5 kg Height/Length: 68 in. BMI: 21.3 ALLERGIES: Ibuprofen, Sulfa Antibiotics, Zithromax The patient's Home Medications are listed below: Not obtained. The source(s) of the original Home Medication information: Not obtained. The following Medications were given to the patient in the Emergency Department: None. The following Medications were prescribed to the patient: None.
== END 2016-09-29 07:19 | disposition left against medical advice (07) ==
LOC: ED SRH 06:37
DX: M79.89 Other specified soft tissue disorders (principal); T36.1X5A Adverse effect of cephalosporins and other beta-lactam antibiotics, initial encounter; F17.210 Nicotine dependence, cigarettes, uncomplicated; Z88.2 Allergy status to sulfonamides; Z88.1 Allergy status to other antibiotic agents; Z88.6 Allergy status to analgesic agent